=== PATIENT | female | born 1970 | race Caucasian/White ===

== ENCOUNTER 2020-09-03 15:50 | Emergency (ER) | payer OTHER ==
[~2020-09-03 15:50] MED LIST: AUGMENTIN 875-1 EACH PO; CYMBALTA 20 MG20 MG PO; ELAVIL 25 MG TA25 MG PO; FLAGYL500 MG PO; FLUTICASONE; FOLIC ACID 1 MG1 MG PO; HYDROXYCHLOROQ200 MG PO; IBUPROFEN600 MG PO; K-DUR TAB 10 M10 MEQ PO; KEPPRA500 MG PO; LASIX20 MG PO; LISINOPRIL-HCT1 EAC1 PO; LOPRESSOR50 MG PO; LORTAB 5-325 M1 EACH PO; NORCO 7.5-3251 EACH PO; NORVASC 5 MG TAB5 MG PO; NORVASC2.5 MG PO; OMEPRAZOLE40 MG PO; ONDANSETRON ODT4 MG PO; PERCOCET 5/325 T1 EA PO; PLAQUENIL 200200 MG PO; PREDNISONE20 MG PO; PRENATAL VITAM1 EAC8 PO; PROTONIX40 MG PO; TOPROL XL50 MG PO; VITAMIN D250000 UNIT PO; VITAMIN D32000 UNI1 PO
[2020-09-03 17:03] LABS: HEMOGLOBIN 14.3 gm/dl (12.3-15.3); RED BLOOD COUNT 3.99 M/UL (4.00-5.10); WHITE BLOOD COUNT 9.8 K/UL (4.5-11.0)
[2020-09-03 17:30] LABS: BUN/CREATININE RATIO 17 (0-10)
== END 2020-09-03 19:00 | disposition home or self-care (01) ==
LOC: ER1 15:50
PROVIDERS: Physician Assistant Medical
DX: E87.6 Hypokalemia (principal); R53.1 Weakness; Z20.822 Contact with and (suspected) exposure to COVID-19; Z90.49 Acquired absence of other specified parts of digestive tract; Z91.013 Allergy to seafood; Z79.899 Other long term (current) drug therapy
CPT/HCPCS: 36415; 71045; 80053; 81001; 83690; 84703; 85025; 87086; 93005; 99285; J7030; U0002

== ENCOUNTER → 2020-09-11 | Outpatient (CLI) | payer OTHER | LOC: EMI 08:33 | DX: G35 Multiple sclerosis (principal); R90.82 White matter disease, unspecified | CPT/HCPCS: 70553; A9577 ==